=== PATIENT | male | born 1940 | race Caucasian/White ===

== ENCOUNTER 2023-07-09 06:09 | Day surgery (SDC) | payer MEDICARE, SELFPAY ==
[2023-07-09] VITALS (11 sets, daily range): BP systolic 142–179; BP diastolic 50–98
[2023-07-09 06:55] LABS: Glucose - Point of Care 133 mg/dl (70-99)
[2023-07-09] MEDS: ANCEF 10 IV (07:44)
[2023-07-09] MEDS: SODIUM CHLORIDE 255 GRAM IRRIG (07:44)
[2023-07-09] MEDS: NSS 500 IV (09:09)
--- NOTE | 2023-07-09 09:12 | ITS.CL.PACE ---
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
Pacemaker Implant
Procedure Report:
PACEMAKER GENERATOR CHANGE
Date of Procedure: July 09, 2023
Primary Care Physician: Dr. Maria Fernanda Medina
Primary High Lift Driver: Dr. Willian Ordonez
Procedures:
1. Removal of a dual chamber PPM generator at [facility]
2. Implant of a new dual chamber PPM generator
Indication of Procedure:
1. PM generator at [facility]
2. Non-reversible symptomatic bradycardia due to: sinus node dysfunction, second degree AV block, third degree AV block.
Indication/History: The patient is an 83-year-old man with a past medical history of pacemaker placement for sick sinus syndrome who presents for battery change due to battery at [facility]. All the data is stable. He has been intermittently dependent in
the RV however is not dependent today with R waves and conduction.
Antibiotic: Ancef 2 g IV
Sedation/anesthesia: Per anesthesia staff.
Description of Procedure: 'Time out' was called and confirmed. The patient was prepped and draped in sterile fashion. Lidocaine with epinephrine was used for local anesthesia. An incision was made along the previous incision and the device and
leads were carefully dissected from the pocket. Hemostasis was obtained with electrocautery. The leads were from the device header and tested using an external analyzer. The pocket was liberally irrigated with antibiotic solution. Once
testing (see below) showed adequate and stable function, the leads were connected to the generator header and the leads and generator were placed within the pocket. The pocket was closed in the typical fashion.
EXPLANTED PPM GENERATOR: Medtronic model A2DR01; serial number: [id number]; implanted: 10/26/2013
IMPLANTED PPM GENERATOR: Medtronic model: W1DR01; serial number: [id number]
Existing RA lead: Medtronic 5076�45; serial number: [id number]; implanted 05/22/2005
Existing RV lead: Medtronic 5076�58; serial number: [id number]; implanted 05/22/2005
DEVICE TESTING:
Sensing: RA 3.5 mV, RV 14 mV
Capture: RA 0.85V@0.5ms, RV 0.75V@0.5ms
Ohms: RA 494, RV 513
FINAL PROGRAMMING
Jr Pacing: AAIR/DDDR 60-130ppm
Complications: None
CONCLUSIONS:
1. Successful explant of a dual chamber permanent pacemaker
2. Successful implant of a dual chamber permanent pacemaker
RECOMMENDATIONS:
1. Routine post-op care.
2. In-Office wound check within 7 days.
3. Office interrogation in 4 weeks
Copy to: Dr. Maria Fernanda Medina
== END 2023-07-09 10:15 | disposition home or self-care (01) ==
LOC: CATH 06:09
PROVIDERS: ATTENDING PHYSICIAN Internal Medicine Interventional Cardiology; FAMILY PHYSICIAN Family Medicine
DX: Z45.010 Encounter for checking and testing of cardiac pacemaker pulse generator [battery] (principal); I49.5 Sick sinus syndrome; I48.0 Paroxysmal atrial fibrillation; I25.10 Atherosclerotic heart disease of native coronary artery without angina pectoris; I10 Essential (primary) hypertension; E78.00 Pure hypercholesterolemia, unspecified; E11.9 Type 2 diabetes mellitus without complications; Z87.891 Personal history of nicotine dependence; Z79.82 Long term (current) use of aspirin; Z79.84 Long term (current) use of oral hypoglycemic drugs
CPT/HCPCS: 33228; 82962; C1786